=== PATIENT | male | born 1965 | race Caucasian/White ===

== ENCOUNTER 2022-04-22 09:17 | Emergency (ER) | payer BC, OTHER ==
[2022-04-22] MEDS ORDERED: TORADOL 10 MG T10 MG PO (09:51)
[2022-04-23] MEDS ORDERED: ROBAXIN 750 MG750 MG PO (03:54)
== END 2022-04-22 10:28 | disposition home or self-care (01) ==
LOC: ER1 09:17
DX: M54.30 Sciatica, unspecified side (principal); E11.9 Type 2 diabetes mellitus without complications; Z86.19 Personal history of other infectious and parasitic diseases; Z90.89 Acquired absence of other organs; Z79.4 Long term (current) use of insulin
CPT/HCPCS: 96372; 99283; J1100; J1885

== ENCOUNTER 2022-04-22 17:47 | Emergency (ER) | payer OTHER ==
[~2022-04-22 17:47] MED LIST: TORADOL 10 MG T10 MG PO
[2022-04-23 01:47] LABS: HEMOGLOBIN 14.4 gm/dl (14.0-17.5); RED BLOOD COUNT 4.63 M/UL (4.20-5.50)
[2022-04-23 02:05] LABS: BUN/CREATININE RATIO 27 (0-10)
[2022-04-23] MEDS ORDERED: ROBAXIN 750 MG750 MG PO (03:54)
== END 2022-04-23 04:12 | disposition home or self-care (01) ==
LOC: ER1 17:47
PROVIDERS: Physician Assistant
DX: S39.012A Strain of muscle, fascia and tendon of lower back, initial encounter (principal); M54.41 Lumbago with sciatica, right side; E11.9 Type 2 diabetes mellitus without complications; J44.9 Chronic obstructive pulmonary disease, unspecified; X58.XXXA Exposure to other specified factors, initial encounter
CPT/HCPCS: 71045; 80053; 82550; 82553; 83880; 84484; 85025; 85379; 85610; 85730; 93005; 99284

== ENCOUNTER 2022-05-20 20:09 | Emergency (ER) | payer OTHER ==
[~2022-05-20 20:09] MED LIST changes: +ROBAXIN 750 MG750 MG PO
[2022-05-20 22:03] LABS: HEMOGLOBIN 15.1 gm/dl (14.0-17.5); RED BLOOD COUNT 4.83 M/UL (4.20-5.50); WHITE BLOOD COUNT 11.7 K/UL (4.5-11.0)
[2022-05-20 22:15] LABS: BUN/CREATININE RATIO 30 (0-10)
[2022-05-21] MEDS ORDERED: ABILIFY15 MG PO (01:21)
== END 2022-05-21 02:02 | disposition home or self-care (01) ==
LOC: ER1 20:09
PROVIDERS: Physician Assistant
DX: F20.9 Schizophrenia, unspecified (principal); F31.9 Bipolar disorder, unspecified; J02.9 Acute pharyngitis, unspecified; J44.9 Chronic obstructive pulmonary disease, unspecified; E11.9 Type 2 diabetes mellitus without complications; F17.200 Nicotine dependence, unspecified, uncomplicated; Z86.19 Personal history of other infectious and parasitic diseases; Z88.8 Allergy status to other drugs, medicaments and biological substances; Z79.899 Other long term (current) drug therapy; Z20.822 Contact with and (suspected) exposure to COVID-19
CPT/HCPCS: 0240U; 71045; 80053; 80307; 81001; 85025; 87081; 87880; 99285

== ENCOUNTER 2022-05-24 12:09 | Emergency (ER) | payer OTHER ==
[~2022-05-24 12:09] MED LIST changes: +ABILIFY15 MG PO
[2022-05-24 13:55] LABS: HEMOGLOBIN 15.5 gm/dl (14.0-17.5); RED BLOOD COUNT 4.94 M/UL (4.20-5.50); WHITE BLOOD COUNT 10.3 K/UL (4.5-11.0)
[2022-05-24 14:17] LABS: BUN/CREATININE RATIO 15 (0-10)
[2022-05-24] MEDS ORDERED: IBUPROFEN600 MG PO (15:30)
[2022-05-24] MEDS ORDERED: CYCLOBENZAPRINE10 MG PO (15:30)
== END 2022-05-24 17:49 | disposition home or self-care (01) ==
LOC: ER1 12:09
PROVIDERS: Physician Assistant
DX: M54.42 Lumbago with sciatica, left side (principal); R13.10 Dysphagia, unspecified; E11.9 Type 2 diabetes mellitus without complications; F17.210 Nicotine dependence, cigarettes, uncomplicated; J44.9 Chronic obstructive pulmonary disease, unspecified
CPT/HCPCS: 70491; 72132; 73552; 80053; 82962; 85025; 85652; 86140; 96372; 99284; J1885; Q9967

== ENCOUNTER 2022-05-25 11:55 | Emergency (ER) | payer OTHER ==
[~2022-05-25 11:55] MED LIST changes: +CYCLOBENZAPRINE10 MG PO; +IBUPROFEN600 MG PO
== END 2022-05-25 15:58 | disposition home or self-care (01) ==
LOC: ER1 11:55
PROVIDERS: Physician Assistant
DX: E11.42 Type 2 diabetes mellitus with diabetic polyneuropathy (principal); M54.50 Low back pain, unspecified; G89.29 Other chronic pain; F17.210 Nicotine dependence, cigarettes, uncomplicated; J44.9 Chronic obstructive pulmonary disease, unspecified; Z86.19 Personal history of other infectious and parasitic diseases; Z90.89 Acquired absence of other organs
CPT/HCPCS: 80307; 96372; 99283; J1885

== ENCOUNTER 2022-05-27 19:54 | Emergency (ER) | payer BC, OTHER ==
[2022-05-27 20:15] LABS: HEMOGLOBIN 15.2 gm/dl (14.0-17.5); RED BLOOD COUNT 4.85 M/UL (4.20-5.50); WHITE BLOOD COUNT 10.2 K/UL (4.5-11.0)
[2022-05-27 20:38] LABS: BUN/CREATININE RATIO 14 (0-10)
== END 2022-05-27 23:02 | disposition left against medical advice (07) ==
LOC: ER1 19:54
PROVIDERS: Student in an Organized Health Care Education/Training Program
DX: M79.606 Pain in leg, unspecified (principal); R12 Heartburn; E11.9 Type 2 diabetes mellitus without complications; F17.210 Nicotine dependence, cigarettes, uncomplicated; Z79.4 Long term (current) use of insulin
CPT/HCPCS: 71045; 80053; 82550; 82553; 84484; 85025; 93005; 99281

== ENCOUNTER 2022-06-04 03:38 | Emergency (ER) | payer BC, OTHER ==
[2022-06-04 06:47] LABS: HEMOGLOBIN 14.9 gm/dl (14.0-17.5); RED BLOOD COUNT 4.72 M/UL (4.20-5.50); WHITE BLOOD COUNT 5.7 K/UL (4.5-11.0)
[2022-06-04 07:27] LABS: BUN/CREATININE RATIO 20 (0-10)
[2022-06-04] MEDS ORDERED: ULTRAM50 MG PO (16:14)
== END 2022-06-04 16:45 | disposition home or self-care (01) ==
LOC: ER1 03:38
PROVIDERS: Physician Assistant
DX: M51.36 Other intervertebral disc degeneration, lumbar region (principal); G89.29 Other chronic pain; R32 Unspecified urinary incontinence; R15.9 Full incontinence of feces; E11.9 Type 2 diabetes mellitus without complications; J44.9 Chronic obstructive pulmonary disease, unspecified; F17.200 Nicotine dependence, unspecified, uncomplicated; Z90.49 Acquired absence of other specified parts of digestive tract
CPT/HCPCS: 72131; 72158; 80053; 81001; 85025; 96372; 99284; A9577; J1100; J1885

== ENCOUNTER 2022-06-29 23:07 | Emergency (ER) | payer SELFPAY ==
[~2022-06-29 23:07] MED LIST changes: +ULTRAM50 MG PO
[2022-06-30 00:07] LABS: HEMOGLOBIN 14.8 gm/dl (14.0-17.5); RED BLOOD COUNT 4.79 M/UL (4.20-5.50); WHITE BLOOD COUNT 10.5 K/UL (4.5-11.0)
[2022-06-30 00:27] LABS: BUN/CREATININE RATIO 15 (0-10)
[2022-06-30] MEDS ORDERED: ZOFRAN 4 MG TAB4 MG PO (01:10)
== END 2022-06-30 01:22 | disposition home or self-care (01) ==
LOC: ER1 23:07
PROVIDERS: Emergency Medicine
DX: G89.29 Other chronic pain (principal); M54.6 Pain in thoracic spine; M79.2 Neuralgia and neuritis, unspecified; I45.2 Bifascicular block; J44.9 Chronic obstructive pulmonary disease, unspecified; E11.9 Type 2 diabetes mellitus without complications
CPT/HCPCS: 80053; 83690; 84484; 85025; 93005; 96374; 99284; J2765